=== PATIENT | female | born 1985 | race Caucasian/White ===

== ENCOUNTER 2019-11-15 23:43 | Emergency (ER) | payer SELFPAY ==
[~2019-11-15] VITALS: Ht 167.6 cm; Wt 73.9 kg
[2019-11-15 23:47] VITALS: BP 132/66; Ht 167.6 cm; Wt 73.9 kg
[2019-11-16 01:02] LABS: UA SPECIFIC GRAVITY 1.025 (1.005-1.035); microscopic required? YES; urine erythrocyte 1+ (NEGATIVE)
== END 2019-11-16 00:44 | disposition left against medical advice (07) ==
LOC: ED 23:43
PROVIDERS: Emergency Medicine
DX: R10.30 Lower abdominal pain, unspecified (principal); Z90.89 Acquired absence of other organs
CPT/HCPCS: 87491; 87591